=== PATIENT | male | born 1950 | race Caucasian/White ===

== ENCOUNTER 2018-10-24 07:00 | Day surgery (SDC) | payer MEDICARE, OTHER ==
[2018-10-24] MEDS ORDERED: PROPOFOL 60 ML (08:41)
[2018-10-24] MEDS ORDERED: LIDOCAINE 2% (SDV) 5 ML INJ (08:41)
[2018-10-24] MEDS ORDERED: ONDANSETRON 4 MG INJ IV (09:30)
[2018-10-24] MEDS ORDERED: FENTAnyl 50 MCG/ML VIAL IV (09:30)
== END 2018-10-24 10:31 | disposition home or self-care (01) ==
LOC: GIL 07:00
DX: R19.5 Other fecal abnormalities (principal); K64.8 Other hemorrhoids; K29.50 Unspecified chronic gastritis without bleeding; K21.9 Gastro-esophageal reflux disease without esophagitis; I10 Essential (primary) hypertension; J45.909 Unspecified asthma, uncomplicated; Z86.73 Personal history of transient ischemic attack (TIA), and cerebral infarction without residual deficits; D12.2 Benign neoplasm of ascending colon
CPT/HCPCS: 43239; 88305; 88312